=== PATIENT | male | born 1945 | race Caucasian/White ===

== ENCOUNTER 2021-02-06 08:53 | Day surgery (SDC) | payer MEDICARE, MEDICAID ==
[~2021-02-06] VITALS: Ht 182.9 cm; Wt 77.1 kg
[2021-02-06] VITALS (10 sets, daily range): BP systolic 116–134; BP diastolic 55–79
[~2021-02-06 08:53] MED LIST: ceFAZolin sod 1 GM in NS 55 ML IVPB ONE
[2021-02-06] MEDS ORDERED: TEMAZEPAM15 MG ORAL (09:23)
[2021-02-06] MEDS ORDERED: Bacitracin 50000 Units Vial ONE (09:42)
[2021-02-06] MEDS ORDERED: Bupivacaine w/Epi 0.25% 50ml vial INJ ONE (09:42)
[2021-02-06] MEDS ORDERED: NeoSporin Gu Irrig 1ml Amp IRRIG ONE (09:42)
[2021-02-06] MEDS ORDERED: HYDROcodone/Acetamin 5/325 tab ORAL PRN ×2 (09:45→10:15)
[2021-02-06] MEDS ORDERED: Meperidine 25mg/1ml Inj (FOR RIGORS ONLY) IV PRN (09:45)
[2021-02-06] MEDS ORDERED: oxyCODONE HCL/Acetaminophen 5/325mg ORAL PRN (09:45)
[2021-02-06] MEDS ORDERED: LORazepam Inj 2mg/ml 1ml IV PRN (09:45)
[2021-02-06] MEDS ORDERED: LR 1000ml 1,000 ML IVLG SCH (09:45)
[2021-02-06] MEDS ORDERED: DiphenhydrAMINE 50mg/ml Inj IVP PRN (09:45)
[2021-02-06] MEDS ORDERED: fentaNYL 100 mcg/2 mL IV PRN (09:45)
[2021-02-06] MEDS ORDERED: Acetaminophen (Non formulary) 100 ML IV ONE (09:45)
[2021-02-06] MEDS ORDERED: Hydromorphone 0.5mg/0.5ml inj IVP PRN (09:45)
[2021-02-06] MEDS ORDERED: HYDROcodone/Acetamin 7.5/325 tab ORAL PRN (09:45)
[2021-02-06] MEDS ORDERED: Midazolam 2mg/2ml Inj IVP PRN (09:45)
[2021-02-06] MEDS ORDERED: Metoclopramide 10mg/2ml Inj IVP PRN (09:45)
[2021-02-06] MEDS ORDERED: Labetalol 5mg/ml 20ml vial IV PRN (09:45)
[2021-02-06] MEDS ORDERED: Atropine Sulfate 0.4mg/ml inj IVP PRN (09:45)
--- NOTE | 2021-02-06 09:46 | Anethesia Preoperative Eval ---
Anesthesia Pre-op PMH/ROS General Date of Evaluation: Feb 06, 2021 Time of Evaluation: 10:23 Anesthesiologist: Sha ASA Score: ASA 3 Mallampati Score Class I : Soft palate, uvula, fauces, pillars visible Class II: Soft palate, uvula, fauces visible Class III: Soft palate, base of uvula visible Class IV: Only hard plate visible Mallampati Classification: Class II Surgeon: Nancy Diagnosis: L Testicle Pain Surgical Procedure: L Orchiectomy Anesthesia History: none Family History: no anesthesia problems Allergies: Coded Allergies: CELECOXIB (Verified Allergy, Unknown, RASH, 02/05/21) Medications: see eMAR Patient NPO?: Yes Past Medical History Cardiovascular: Reports: HTN, CAD, other - HL Neurologic/Psychiatric: Reports: depression/anxiety Anesthesia Pre-op Phys. Exam Physician Exam Last Vital Signs Date Time Temp Pulse Resp B/P (MAP) Pulse Ox O2 Delivery O2 Flow Rate FiO2 02/06/21 09:38 Room Air 02/06/21 09:24 97.1 60 18 134/55 98 Constitutional: NAD Neurologic: CN 2-12 intact Cardiovascular: RRR Respiratory: CTA Gastrointestinal: S/NT/ND Airway Exam Mallampati Score: Class II MO: full ROM: full Teeth: missing, intact Anesthesia Pre-op A/P Risk Assessment & Plan Assessment: ASA 3 Plan: GA, SED, GlideScope Status Change Before Surgery: No Pre-Antibiotics Dru Gram Ancef IV Given Within 1 Hr of Incision: Yes Time Given: 10:27 Isak Dalton MD Feb 06, 2021 09:46
--- NOTE | 2021-02-06 09:47 | Immediate Post-Op Evaluation ---
Immediate Post-Op Evalulation Immediate Post-Op Evalulation Procedure: L Orchiectomy Date of Evaluation: Feb 06, 2021 Time of Evaluation: 11:28 IV Fluids: 1000 LR Blood Products: 0 Estimated Blood Loss: 10 Urinary Output: 0 Blood Pressure Systolic: 133 Blood Pressure Diastolic: 80 Pulse Rate: 64 Respiratory Rate: 16 O2 Sat by Pulse Oximetry: 100 Temperature (Fahrenheit): 97.2 Pain Score (1-10): 2 Nausea: No Vomiting: No Complications 0 Patient Status: awake, reacts, patent, extubated, none Hydration Status: adequate Dru Gram Ancef IV Given Within 1 Hr of Incision: Yes Time Given: 10:27 Isak Dalton MD Feb 06, 2021 09:47
--- NOTE | 2021-02-06 09:48 | 48 Hour Post Anesthesia Eval ---
Post Anesthesia Evaluation Procedure: L Orchiectomy Date of Evaluation: Feb 06, 2021 Time of Evaluation: 13:43 Blood Pressure Systolic: 128 0: 76 Pulse Rate: 73 Respiratory Rate: 18 Temperature (Fahrenheit): 98 O2 Sat by Pulse Oximetry: 100 Airway: patent Nausea: No Vomiting: No Pain Intensity: 2 Hydration Status: adequate Cardiopulmonary Status: Stable Mental Status/LOC: patient returned to baseline Follow-up Care/Observations: 0 Post-Anesthesia Complications: 0 Follow-up care needed: ready to discharge Iska Dalton MD Feb 06, 2021 09:48
--- NOTE | 2021-02-06 10:10 | Pre-Procedure Note/Attestation ---
Pre-Procedure Note/Attestation Complete Prior to Procedure Planned Procedure: left Procedure Narrative: orchiectomy Indications for Procedure Pre-Operative Diagnosis: testicular mass Attestation I attest that I discussed the nature of the procedure; its benefits; risks and complications; and alternatives (and the risks and benefits of such alternatives), prior to the procedure, with the patient (or the patient's legal commissary representative). I attest that, if there was a reasonable possibility of needing a blood transfu debbie, the patient (or the patient's legal commissary representative) was given the [facility] standardized written summary, pursuant to the Eliecer Jackie Blood Safety Act ([place] Health and Safety Code # 1645, as amended). I attest that I re-evaluated the patient just prior to the surgery and that there has been no change in the patient's H&P, except as documented below: Himanshu Cruz MD Feb 06, 2021 10:10
--- NOTE | 2021-02-06 10:12 | Brief Operative Note ---
Immediate Post Operative Note Operative Note Pre-op Diagnosis: testicular mass Procedure: left orchiectomy Post-op Diagnosis: same Post-op Diagnosis: same as pre-op Surgeon: Travis Cruz Anesthesia: general Specimen: yes Complications: none Condition: stable Fluids: 500 Estimated Blood Loss: minimal Implant(s) used?: No Himanshu Cruz MD Feb 06, 2021 10:12
[2021-02-06] MEDS ORDERED: Tylenol #3 tab (300mg/30mg) ORAL PRN (10:15)
[2021-02-06] MEDS ORDERED: HYDROmorphone 1mg/ml Carpuject SUBQ PRN (10:15)
[2021-02-06] MEDS ORDERED: Midazolam 2mg/2ml Inj ONE (10:22)
[2021-02-06] MEDS ORDERED: Lidocaine 1% MPF 10mg/ml 5ml ONE (10:23)
[2021-02-06] MEDS ORDERED: Glycopyrrolate 0.2mg/ml 1ml Vial ONE ×3 (10:48→10:59)
[2021-02-06] MEDS ORDERED: Neostigmine 1mg/ml 10ml Inj ONE (10:52)
--- NOTE | 2021-02-06 13:44 | Operative Note - Dictated ---
DATE OF OPERATION: 02/06/2021 PREOPERATIVE DIAGNOSIS: Left testicular mass. POSTOPERATIVE DIAGNOSIS: Left testicular mass. OPERATION: Radical left orchiectomy. SECURITY SYSTEM SALES CONSULTANT: Himanshu Cruz MD. ANESTHESIA: General. FINDINGS: Enlarged firm left testicle with possible mass. INDICATIONS FOR SURGERY: The patient had history of enlarged and firm left testicle for the last 3 months. He was treated with multiple courses of IV and p.o. antibiotics without major improvement. Testicle on the latest scrotal ultrasound was still very firm and not significantly improved after multiple courses of treatment. Treatment options were explained to him. Considering the age of the patient and persisting findings, the decision was made to proceed with left orchiectomy. All potential complications were explained. He signed a consent. DESCRIPTION OF PROCEDURE: He was brought to the operating room, placed in supine position, prepped and draped in standard fashion. A 3 centimeter incision in the left McBurney point and groin area was made. Jessie's fascia was excised. Testicle was brought through the external inguinal ring into the wound and the pedicle of the testicle was treated with separate ties and stick ties with 2-0 silk. The testicle was then removed for pathologic examination. Careful hemostasis. No evidence of bleeding. Jessie's was closed in a running 3-0 Vicryl suture. Subcuticular closure for the skin. ESTIMATED BLOOD LOSS: 5 mL. Himanshu Cruz M.D. DR: Philip JOB#: [id number] CC:
[2021-02-06] MEDS ORDERED: D5 1/2NS 1,000 ML IV SCH (14:00)
== END 2021-02-06 12:40 | disposition home or self-care (01) ==
LOC: SUR 08:53
DX: N50.9 Disorder of male genital organs, unspecified (principal); N50.812 Left testicular pain; I11.9 Hypertensive heart disease without heart failure; I25.10 Atherosclerotic heart disease of native coronary artery without angina pectoris; Z88.8 Allergy status to other drugs, medicaments and biological substances; F32.9 Major depressive disorder, single episode, unspecified; F41.9 Anxiety disorder, unspecified
CPT/HCPCS: 54530; 94003; J0131; J0690; J1100; J2250; J2405; J2710; 94150